=== PATIENT | male | born 1945 | race Native Hawaiian/Other Pacific Islander ===

== ENCOUNTER 2019-05-30 19:59 | Outpatient (CLI) | payer OTHER | END 2019-05-30 20:03 | disposition short-term general hospital (02) | LOC: AMB 19:59 | DX: S01.81XA Laceration without foreign body of other part of head, initial encounter (principal); Y08.02XA Assault by strike by baseball bat, initial encounter; Y92.018 Other place in single-family (private) house as the place of occurrence of the external cause | CPT/HCPCS: A0425; A0429 ==

== ENCOUNTER 2019-05-30 20:15 | Emergency (ER) | payer OTHER ==
[~2019-05-30] VITALS: Ht 165.1 cm; Wt 59.0 kg
[2019-05-30 21:01] LABS: PLATELET COUNT 230 K/uL (142-355)
[2019-05-30 21:11] LABS: POTASSIUM 4.7 mmol/L (3.6-5.2)
[2019-05-31 01:58] VITALS: BP 118/74; TEMP 97.2
== END 2019-05-31 01:59 | disposition home or self-care (01) ==
LOC: ED 20:15
PROVIDERS: Emergency Medicine
PROC: 0HQ0XZZ Repair Scalp Skin, External Approach (ICD-10-PCS; principal; 2019-05-30)
DX: S09.8XXA Other specified injuries of head, initial encounter (principal); S01.01XA Laceration without foreign body of scalp, initial encounter; Y08.02XA Assault by strike by baseball bat, initial encounter
CPT/HCPCS: 80053; 80307; 80320; 80329; 83735; 85027; 99283; J7040

== ENCOUNTER 2019-06-10 09:12 | Emergency (ER) | payer OTHER ==
[~2019-06-10] VITALS: Ht 165.1 cm; Wt 72.6 kg
[2019-06-10 09:18] VITALS: TEMP 97.9
[2019-06-10 10:12] VITALS: BP 139/87
== END 2019-06-10 10:14 | disposition home or self-care (01) ==
LOC: ED 09:12
DX: Z48.02 Encounter for removal of sutures (principal)

== ENCOUNTER 2020-09-17 15:37 | Emergency (ER) | payer OTHER ==
[~2020-09-17] VITALS: Ht 165.1 cm; Wt 72.6 kg
[2020-09-17 15:37] VITALS: TEMP 97.1
[2020-09-17 16:58] LABS: PLATELET COUNT 194 K/uL (142-355)
[2020-09-17 17:04] LABS: POTASSIUM 3.8 mmol/L (3.6-5.2)
[2020-09-17 17:22] LABS: PARTIAL THROMBOPLASTIN TIME 21.2 SECONDS (24.5-33.6)
[2020-09-17 19:04] VITALS: BP 128/70
== END 2020-09-17 19:04 | disposition short-term general hospital (02) ==
LOC: ED 15:37
PROVIDERS: Hospitalist
PROC: 0HQDXZZ Repair Right Lower Arm Skin, External Approach (ICD-10-PCS; principal; 2020-09-17)
DX: S51.811A Laceration without foreign body of right forearm, initial encounter (principal); S55.111A Laceration of radial artery at forearm level, right arm, initial encounter; S56.521A Laceration of other extensor muscle, fascia and tendon at forearm level, right arm, initial encounter; W29.3XXA Contact with powered garden and outdoor hand tools and machinery, initial encounter; Y92.89 Other specified places as the place of occurrence of the external cause
CPT/HCPCS: 80048; 80320; 85027; 85610; 85730; 90715; 96365; 96375; 99284; J0690; J1885; J7040

== ENCOUNTER 2020-09-22 14:15 | Emergency (ER) | payer OTHER ==
[~2020-09-22] VITALS: Ht 165.1 cm; Wt 72.6 kg
[2020-09-22 14:27] VITALS: BP 138/92; TEMP 97.9
== END 2020-09-22 14:50 | disposition home or self-care (01) ==
LOC: ED 14:15
DX: Z48.01 Encounter for change or removal of surgical wound dressing (principal)
CPT/HCPCS: 99282; J7040

== ENCOUNTER 2020-10-03 12:39 | Emergency (ER) | payer OTHER ==
[~2020-10-03] VITALS: Ht 195.6 cm; Wt 67.1 kg
[2020-10-03 13:28] VITALS: BP 131/39; TEMP 98.5
== END 2020-10-03 13:28 | disposition home or self-care (01) ==
LOC: ED 12:39
DX: Z48.02 Encounter for removal of sutures (principal)
CPT/HCPCS: 99281

== ENCOUNTER 2022-03-20 20:09 | Emergency (ER) | payer OTHER ==
[~2022-03-20] VITALS: Ht 195.6 cm; Wt 67.1 kg
[2022-03-20 23:25] VITALS: BP 116/72; TEMP 98.2
== END 2022-03-20 23:25 | disposition home or self-care (01) ==
LOC: ED 20:09
DX: S81.812A Laceration without foreign body, left lower leg, initial encounter (principal); W20.8XXA Other cause of strike by thrown, projected or falling object, initial encounter; Y92.89 Other specified places as the place of occurrence of the external cause
CPT/HCPCS: 99283

== ENCOUNTER 2022-10-22 17:47 | Emergency (ER) | payer OTHER ==
[~2022-10-22] VITALS: Ht 195.6 cm; Wt 66.7 kg
[2022-10-22 17:50] VITALS: TEMP 97.9
[2022-10-22 19:03] LABS: PLATELET COUNT 48 K/uL (142-355)
[2022-10-22 19:07] LABS: POTASSIUM 4.3 mmol/L (3.6-5.2)
[2022-10-22 20:00] VITALS: BP 152/88
== END 2022-10-22 21:25 | disposition short-term general hospital (02) ==
LOC: ED 17:47
PROVIDERS: Emergency Medicine Emergency Medical Services
DX: I21.4 Non-ST elevation (NSTEMI) myocardial infarction (principal); G45.9 Transient cerebral ischemic attack, unspecified; F17.210 Nicotine dependence, cigarettes, uncomplicated
CPT/HCPCS: 36415; 80053; 80307; 81000; 83735; 84484; 85027; 85610; 93005; 96365; 99284; J3475

== ENCOUNTER 2022-12-23 08:26 | Emergency (ER) | payer OTHER ==
[~2022-12-23] VITALS: Ht 195.6 cm; Wt 61.2 kg
[2022-12-23 09:14] LABS: PLATELET COUNT 61 K/uL (142-355)
[2022-12-23 09:25] LABS: POTASSIUM 4.1 mmol/L (3.6-5.2); SODIUM 123 mmol/L (136-145)
[2022-12-23 09:35] LABS: PARTIAL THROMBOPLASTIN TIME 28.8 SECONDS (23.9-36.7)
[2022-12-23 15:08] LABS: POTASSIUM 4.3 mmol/L (3.6-5.2)
[2022-12-23 17:15] VITALS: BP 148/87; TEMP 99.1
== END 2022-12-23 17:15 | disposition short-term general hospital (02) ==
LOC: ED 08:42
PROVIDERS: Family Medicine
DX: R41.82 Altered mental status, unspecified (principal); R77.8 Other specified abnormalities of plasma proteins; F17.210 Nicotine dependence, cigarettes, uncomplicated; F10.90 Alcohol use, unspecified, uncomplicated; F12.90 Cannabis use, unspecified, uncomplicated; Z86.73 Personal history of transient ischemic attack (TIA), and cerebral infarction without residual deficits; I25.2 Old myocardial infarction; S00.03XA Contusion of scalp, initial encounter
CPT/HCPCS: 36415; 51702; 80048; 80053; 80179; 80307; 80320; 81000; 83605; 83735; 83880; 84100; 84484; 85027; 85379; 85610; 85730; 86140; 87040; 93005; 96361; 96365; 96366; 96375; 96376; 99285; J0696; J1644; J2060; J3411; J3475; J3490; Q9963